=== PATIENT | female | born 1985 | race Caucasian/White ===

== ENCOUNTER 2018-05-26 08:58 | Inpatient (IN) | payer BC ==
[2018-05-26] MEDS ORDERED: Nalbuphine 20 MG/ML 1 ML Syringe IVPUSH PRN (11:31)
[2018-05-26] MEDS ORDERED: Sodium Chloride 0.9% 10 ML Syringe FLUSH PRN (11:31)
[2018-05-26] MEDS ORDERED: fentaNYL 100 MCG/2 ML SDV EPIDUR PRN (11:37)
[2018-05-26] MEDS ORDERED: Ondansetron 4 MG/2 ML SDV IVPUSH PRN (11:37)
[2018-05-26] MEDS ORDERED: ePHEDrine 50 MG/ML SDV IVPUSH PRN (11:37)
--- NOTE | 2018-05-26 11:39 | PCM.PREANE ---
Preanesthetic Assessment - Anesthesia/Transfusion/Family Hx Family History of Anesthesia Reaction: No Intubation History: Unknown - Physical Assessment NPO Status Date: 05/26/18 Pulse: 85 O2 Sat by Pulse Oximetry: 99 Respiratory Rate: 18 Blood Pressure: 137/70 Temperature: 37 C Vital Signs: Last Vital Signs Temp 37.0 C 05/26/18 11:22 Pulse 85 05/26/18 11:22 Resp 18 05/26/18 11:22 BP 137/70 05/26/18 11:22 Pulse Ox Height: 1.63 m Weight: 100.607 kg ASA Class: 2 Mental Status: Alert & Oriented x3 Airway Class: Mallampati = 2 Dentition: Reports: Normal Dentition, Caries Thyro-Mental Finger Breadths: 3 Mouth Opening Finger Breadths: 3 ROM/Head Extension: Full Lungs: Clear to Auscultation, Normal Respiratory Effort Cardiovascular: Regular Rate, Regular Rhythm, No Murmurs - Allergies Allergies/Adverse Reactions: Allergies Allergy/AdvReac Type Severity Reaction Status Date / Time No Known Allergies Allergy Verified 05/26/18 11:31 - Anesthesia Plan Pre-Op Medication Ordered: None - Acknowledgements Anesthesia Type Planned: Epidural Pt an Appropriate Candidate for the Planned Anesthesia: Yes Alternatives and Risks of Anesthesia Discussed w Pt/Guardian: Yes Pt/Guardian Understands and Agrees with Anesthesia Plan: Yes PreAnesthesia Questionnaire - CURRENT (IN HOUSE) MEDS Current Meds: Current Medications Lactated Ringer's (Ringers, Lactated) 1,000 mls @ 100 mls/hr IV ASDIRECTED SOTO Oxytocin/Lactated Ringer's (Pitocin In Lr 10 Units/1,000 Ml) 10 unit in 1,000 mls @ 500 mls/hr IV .CONTINUOUS SOTO Nalbuphine HCl (Nubain) 10 mg IVPUSH Q2H PRN PRN Reason: pain Sodium Chloride (Saline Flush) 10 ml FLUSH ASDIRECTED PRN PRN Reason: Keep Vein Open
[2018-05-26] MEDS ORDERED: Oxytocin/Lactated Ringers 10 UNIT/1,000 ML BAG IV SCH ×2 (11:45→14:45)
[2018-05-26] MEDS ORDERED: Phenylephrine 1 MG in Sodium Chloride 0.9% 10 ML IV SCH (11:45)
[2018-05-26] MEDS ORDERED: fentaNYL/Bupivacaine-NS 2 MCG/ML-0.125%/PF 100 ML Bag EPIDUR SCH (11:45)
[2018-05-26] MEDS ORDERED: Lactated Ringers 1,000 ML IV SCH (11:45)
[2018-05-26] MEDS ORDERED: Lidocaine 1% 50 ML MDV ONE (21:07)
--- NOTE | 2018-05-26 21:30 | PCM.LDHP ---
L&D History of Present Illness - General Date of Service: 05/26/18 Admit Problem/Dx: Patient Status Order with Admit Dx/Problem 05/26/18 11:31 Patient Status [ADT] Routine Admission Diagnosis/Problem Admission Diagnosis/Problem - History of Present Illness Improves with: Reports: None Worsens with: Reports: None Associated Symptoms: Reports: N - Related Data Allergies/Adverse Reactions: Allergies Allergy/AdvReac Type Severity Reaction Status Date / Time No Known Allergies Allergy Verified 05/26/18 11:31 Home Medications: Home Meds Vits #93/Iron Fum/FA [ Formula Tablet] 05/26/18 [History] Past Medical History 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: Reports: , Other (See Below) Other OB/BYN History: abnormal pap with HPV Neurological History: Reports: Migraines Psychiatric History: Reports: Anxiety, Bipolar, Depression - Past Surgical History HEENT Surgical History: Reports: Oral Surgery Social & Family History - Tobacco Use Smoking Status *Q: Former Smoker Used Tobacco, but Quit: Yes Month/Year Tobacco Last Used: 02/10/2018 - Recreational Drug Use Recreational Drug Use: Yes Drug Use in Last 12 Months: No Recreational Drug Type: Reports: Cocaine, Marijuana/Hashish, Other (see below) Other Recreational Drug Type: states she used meth H&P Review of Systems - Review of Systems: Review Of Systems: See Below General: Reports: No Symptoms HEENT: Reports: No Symptoms Pulmonary: Reports: No Symptoms Cardiovascular: Reports: No Symptoms Gastrointestinal: Reports: No Symptoms Genitourinary: Reports: No Symptoms Musculoskeletal: Reports: No Symptoms Skin: Reports: No Symptoms Psychiatric: Reports: No Symptoms Neurological: Reports: No Symptoms Hematologic/Lymphatic: Reports: No Symptoms Immunologic: Reports: No Symptoms L&D Exam - Exam Exam: See Below - Vital Signs Vital Signs: Last Vital Signs Temp 37 C 05/26/18 11:39 Pulse 85 05/26/18 11:39 Resp 18 05/26/18 11:39 BP 137/70 05/26/18 11:39 Pulse Ox 99 05/26/18 11:39 Weight: 100.607 kg - OB Specific Contraction Intensity: Moderate Movement: Active Heart Tones: Present Heart Rate (FHR) Variability: Moderate (6-25 bmp) Presentation: Vertex - Salguero Score Salguero Score Cervix Position: Midposition Salguero Score Consistency: Medium Salguero Score Effacement: >80% Salguero Score Dilation: 3-4 cm Salguero Score Infant's Station: -1 ,0 Salguero Score Total: 9 - Exam General: Alert, Oriented HEENT: PERRLA, Conjunctiva Clear, EACs Clear, EOMI, Hearing Intact, Mucosa Moist & [place], Nares Patent, Normal Nasal Septum, Posterior Pharynx Clear, TMs Clear Neck: Supple, Trachea Midline Lungs: Clear to Auscultation, Normal Respiratory Effort Cardiovascular: Regular Rate, Regular Rhythm GI/Abdominal Exam: Normal Bowel Sounds, Soft, Non-Tender, No Organomegaly, No Distention, No Abnormal Bruit, No Mass, Pelvis Stable Genitourinary: Normal external exam, Normal bimanual exam, Normal speculum exam Back Exam: Normal Inspection, Full Range of Motion Extremities: Normal Inspection, Normal Range of Motion, Non-Tender, No Pedal Edema, Normal Capillary Refill Skin: Warm, Dry, Intact Neurological: Cranial Nerves Intact, Reflexes Equal Bilateral Psychiatric: Alert, Normal Affect, Normal Mood - Patient Data Lab Results Last 24 hrs: Laboratory Results - last 24 hr 05/26/18 05/26/18 Range/Units 11:52 13:23 WBC 8.98 (3.98-10.04) K/mm3 RBC 3.83 L (3.98-5.22) M/mm3 Hgb 11.3 (11.2-15.7) gm/L Hct 34.2 (34.1-44.9) % MCV 89.3 (79.4-94.8) fl MCH 29.5 (25.6-32.2) pg MCHC 33.0 (32.2-35.5) g/dl RDW Std Deviation 45.1 (36.4-46.3) fL Plt Count 153 L (182-369) K/mm3 MPV 11.1 (9.4-12.3) fl Neut % (Auto) 76.0 H (34.0-71.1) % Lymph % (Auto) 13.9 L (19.3-51.7) % Harlan % (Auto) 8.4 (4.7-12.5) % Eos % (Auto) 0.6 L (0.7-5.8) Baso % (Auto) 0.1 (0.1-1.2) % Neut # (Auto) 6.83 H (1.56-6.13) K/mm3 Lymph # (Auto) 1.25 (1.18-3.74) K/mm3 Harlan # (Auto) 0.75 H (0.24-0.36) K/mm3 Eos # (Auto) 0.05 (0.04-0.36) K/mm3 Baso # (Auto) 0.01 (0.01-0.08) K/mm3 Urine Opiates Screen Negative (WJSJQJ=275) Ur Buprenorphine Scrn Negative (CUTOFF=10) Ur Oxycodone Screen Negative (TSP5WS=787) Urine Methadone Screen Negative (KPAVKU=239) Ur Propoxyphene Screen Negative (VVXQOR=984) Ur Barbiturates Screen Negative (JECEGQ=870) Ur Tricyclics Screen Negative (PDWZOE=809) Ur Phencyclidine Scrn Negative (CUTOFF=25) Ur Amphetamine Screen Negative (KITEQT=679) U Methamphetamines Scrn Negative (SSNKQV=699) U Benzodiazepines Scrn Negative (EVEYKE=753) U Cocaine Metab Screen Negative (RJQNJG=708) U Marijuana (THC) Screen Negative (CUTOFF=50) Result Diagrams: 05/26/18 11:52 Problem List Initiated/Reviewed/Updated: Yes Orders Last 24hrs: Active Orders 24 hr Category Date Time Status Patient Status [ADT] Routine ADT 05/26/18 11:31 Active Activity as Tolerated [RC] PFP Care 05/26/18 11:31 Active Communication Order [RC] ASDIRECTED Care 05/26/18 11:31 Active Heart Tones [RC] ASDIRECTED Care 05/26/18 11:32 Active Non Stress Test [RC] PER UNIT ROUTINE Care 05/26/18 11:31 Active Notify Provider [RC] ASDIRECTED Care 05/26/18 11:37 Active Notify Provider [RC] PFP Care 05/26/18 11:31 Active Notify Provider [RC] PRN Care 05/26/18 11:31 Active Oxygen Therapy [RC] ASDIRECTED Care 05/26/18 11:37 Active Peripheral IV Care [RC] . DIRECTED Care 05/26/18 11:32 Active Pulse Oximetry [RC] ASDIRECTED Care 05/26/18 11:37 Active Vital Signs [RC] PER UNIT ROUTINE Care 05/26/18 11:31 Active Regular Diet [DIET] Diet 05/26/18 Lunch Active RAPID PLASMA REAGIN,RPR [CHEM] Routine Lab 05/26/18 11:52 Received Lactated Ringers [Ringers, Lactated] 1,000 ml Med 05/26/18 11:45 Active IV ASDIRECTED Nalbuphine [Nubain] Med 05/26/18 11:31 Active 10 mg IVPUSH Q2H PRN Ondansetron [Zofran] Med 05/26/18 11:37 Active 4 mg IVPUSH ONETIME PRN Oxytocin/Lactated Ringers [Pitocin in LR 10 Units/1,000 Med 05/26/18 11:45 Active ML] 10 unit in 1,000 ml IV .CONTINUOUS Oxytocin/Lactated Ringers [Pitocin in LR 10 Units/1,000 Med 05/26/18 14:45 Active ML] 10 unit in 1,000 ml IV TITRATE Phenylephrine [[place]ito-Synephrine] 1 mg Med 05/26/18 11:45 Active Sodium Chloride 0.9% [Normal Saline] 10 ml IV TITRATE Sodium Chloride 0.9% [Saline Flush] Med 05/26/18 11:31 Active 10 ml FLUSH ASDIRECTED PRN ePHEDrine [ePHEDrine sulfate] Med 05/26/18 11:37 Active 5 mg IVPUSH ASDIRECTED PRN fentaNYL [Sublimaze] Med 05/26/18 11:37 Active 100 mcg EPIDUR Q3H PRN fentaNYL/Bupivacaine/NS/PF [mvhgqBUX-[place]-RO 2 MCG/ML- Med 05/26/18 11:45 Active 0.125%] 100 ml EPIDUR ASDIRECTED Electronic Heart Tones Ext w TOCO [WOMSER] Oth 05/26/18 11:31 Ordered Routine Electronic Heart Tones Internal [WOMSER] Per Unit Oth 05/26/18 11:31 Ordered Routine Peripheral IV Insertion Adult [OM.PC] Routine Oth 05/26/18 11:31 Ordered Resuscitation Status Routine Resus Stat 05/26/18 11:31 Ordered Medication Orders Ephedrine Sulfate (Ephedrine Sulfate) 5 mg IVPUSH ASDIRECTED PRN PRN Reason: Hypotension Fentanyl (Sublimaze) 100 mcg EPIDUR Q3H PRN PRN Reason: Pain Fentanyl/Bupivacaine HCl (Vvnkaskg-Jjqdl-Hw 2 Mcg/Ml-0.125%) 100 ml EPIDUR ASDIRECTED SOTO Lactated Ringer's (Ringers, Lactated) 1,000 mls @ 100 mls/hr IV ASDIRECTED SOTO Last Admin: 05/26/18 14:47 Dose: 100 mls/hr Oxytocin/Lactated Ringer's (Pitocin In Lr 10 Units/1,000 Ml) 10 unit in 1,000 mls @ 500 mls/hr IV .CONTINUOUS SOTO Phenylephrine HCl 1 mg/ Sodium (Chloride) 10.1 mls @ 1 mls/sec IV TITRATE SOTO; Protocol Oxytocin/Lactated Ringer's (Pitocin In Lr 10 Units/1,000 Ml) 10 unit in 1,000 mls @ 12 mls/hr IV TITRATE SOTO; Protocol Last Titration: 05/26/18 19:05 Dose: 10 munits/min, 60 mls/hr Titration: 05/26/18 18:55 Dose: 12 munits/min, 72 mls/hr Titration: 05/26/18 17:28 Dose: 10 munits/min, 60 mls/hr Titration: 05/26/18 16:35 Dose: 8 munits/min, 48 mls/hr Titration: 05/26/18 16:03 Dose: 6 munits/min, 36 mls/hr Titration: 05/26/18 15:28 Dose: 4 munits/min, 24 mls/hr Admin: 05/26/18 14:47 Dose: 2 munits/min, 12 mls/hr Nalbuphine HCl (Nubain) 10 mg IVPUSH Q2H PRN PRN Reason: pain Last Admin: 05/26/18 19:26 Dose: 10 mg Ondansetron HCl (Zofran) 4 mg IVPUSH ONETIME PRN PRN Reason: Nausea/Vomiting Sodium Chloride (Saline Flush) 10 ml FLUSH ASDIRECTED PRN PRN Reason: Keep Vein Open Assessment/Plan Comment:: Term induction AROM clear fluid Anticipate unless otherwise indicated
--- NOTE | 2018-05-26 21:38 | PCM.SN ---
- Free Text/Narrative Note: Stage I - Patient presented for induction of labor. AROM. Progressed to complete with overall reassuring heart tones. Stage II - of viable female infant, weight 7#3oz, APGARS 8/9 at 2110. Head delivered in controlled manner over intact perineum. Body and shoulders followed atraumatically. Baby to maternal abdomen. Cord clamped and cut. Stage III- Spontaneous delivery with some manual expression via uterine massage of intact placenta. 3vc. No laceration. EBL 100.
[2018-05-26] MEDS ORDERED: Lanolin 100% Cream 7 GM Tube TOP PRN (21:45)
[2018-05-26] MEDS ORDERED: Acetaminophen 325 MG Tab PO PRN (21:45)
[2018-05-26] MEDS ORDERED: Witch Hazel Medicated Pads 40/Jar TOP PRN (21:45)
[2018-05-26] MEDS ORDERED: Benzocaine/Menthol 20%-0.5% Spray 56 GM Canister TOP PRN (21:45)
[2018-05-26] MEDS: Docusate Sodium 100 MG Cap PO PRN (22:17)
[2018-05-26] MEDS: Ibuprofen 600 MG Tab PO PRN (22:18)
--- NOTE | 2018-05-27 07:39 | PCM.PNPP ---
- General Info Date of Service: 05/27/18 Functional Status: Reports: Pain Controlled - Review of Systems General: Reports: No Symptoms HEENT: Reports: No Symptoms Pulmonary: Reports: No Symptoms Cardiovascular: Reports: No Symptoms Gastrointestinal: Reports: No Symptoms Genitourinary: Reports: No Symptoms Musculoskeletal: Reports: No Symptoms Skin: Reports: No Symptoms Neurological: Reports: No Symptoms Psychiatric: Reports: No Symptoms - General Info Date of Service: 05/27/18 - Patient Data Vital Signs - Most Recent: Last Vital Signs Temp 37.2 C 05/27/18 02:29 Pulse 81 05/27/18 02:29 Resp 16 05/27/18 02:29 BP 119/52 L 05/27/18 02:29 Pulse Ox 97 05/27/18 02:29 Weight - Most Recent: 100.607 kg I&O - Last 24 Hours: Intake & Output 05/26/18 05/27/18 05/27/18 22:59 06:59 14:59 Intake Total 1850 Balance 1850 Lab Results - Last 24 Hours: Laboratory Results - last 24 hr 05/26/18 05/26/18 Range/Units 11:52 13:23 WBC 8.98 (3.98-10.04) K/mm3 RBC 3.83 L (3.98-5.22) M/mm3 Hgb 11.3 (11.2-15.7) gm/L Hct 34.2 (34.1-44.9) % MCV 89.3 (79.4-94.8) fl MCH 29.5 (25.6-32.2) pg MCHC 33.0 (32.2-35.5) g/dl RDW Std Deviation 45.1 (36.4-46.3) fL Plt Count 153 L (182-369) K/mm3 MPV 11.1 (9.4-12.3) fl Neut % (Auto) 76.0 H (34.0-71.1) % Lymph % (Auto) 13.9 L (19.3-51.7) % Coffee % (Auto) 8.4 (4.7-12.5) % Eos % (Auto) 0.6 L (0.7-5.8) Baso % (Auto) 0.1 (0.1-1.2) % Neut # (Auto) 6.83 H (1.56-6.13) K/mm3 Lymph # (Auto) 1.25 (1.18-3.74) K/mm3 Coffee # (Auto) 0.75 H (0.24-0.36) K/mm3 Eos # (Auto) 0.05 (0.04-0.36) K/mm3 Baso # (Auto) 0.01 (0.01-0.08) K/mm3 Urine Opiates Screen Negative (XVXKWY=522) Ur Buprenorphine Scrn Negative (CUTOFF=10) Ur Oxycodone Screen Negative (XVK1KL=857) Urine Methadone Screen Negative (ZEYXYH=122) Ur Propoxyphene Screen Negative (KGHFLZ=980) Ur Barbiturates Screen Negative (URTYCL=992) Ur Tricyclics Screen Negative (LKQEQG=010) Ur Phencyclidine Scrn Negative (CUTOFF=25) Ur Amphetamine Screen Negative (YESRAH=486) U Methamphetamines Scrn Negative (KEOVJU=511) U Benzodiazepines Scrn Negative (RDXDDY=102) U Cocaine Metab Screen Negative (MCGXKC=076) U Marijuana (THC) Screen Negative (CUTOFF=50) Med Orders - Current: Current Medications Acetaminophen (Tylenol) 650 mg PO Q4H PRN PRN Reason: mild pain or fever Benzocaine/Menthol (Dermoplast Pain Relief Almond) 0 gm TOP ASDIRECTED PRN PRN Reason: Perineal Comfort Measure Last Admin: 05/26/18 22:16 Dose: 1 canister Docusate Sodium (Colace) 100 mg PO BID PRN PRN Reason: Constipation Last Admin: 05/26/18 22:17 Dose: 100 mg Emollient Ointment (Lansinoh Hpa) 0 gm TOP ASDIRECTED PRN PRN Reason: Sore Nipples Ibuprofen (Motrin) 600 mg PO Q6H PRN PRN Reason: Mild pain or fever Last Admin: 05/26/18 22:18 Dose: 600 mg Witch Ale (Tucks) 1 pad TOP ASDIRECTED PRN PRN Reason: Pain Last Admin: 05/26/18 22:17 Dose: 1 tub Discontinued Medications Ephedrine Sulfate (Ephedrine Sulfate) 5 mg IVPUSH ASDIRECTED PRN PRN Reason: Hypotension Fentanyl (Sublimaze) 100 mcg EPIDUR Q3H PRN PRN Reason: Pain Fentanyl/Bupivacaine HCl (Vpnlxlrw-Ntnfg-Gn 2 Mcg/Ml-0.125%) 100 ml EPIDUR ASDIRECTED SOTO Lactated Ringer's (Ringers, Lactated) 1,000 mls @ 100 mls/hr IV ASDIRECTED SOTO Last Admin: 05/26/18 14:47 Dose: 100 mls/hr Oxytocin/Lactated Ringer's (Pitocin In Lr 10 Units/1,000 Ml) 10 unit in 1,000 mls @ 500 mls/hr IV .CONTINUOUS SOTO Phenylephrine HCl 1 mg/ Sodium (Chloride) 10.1 mls @ 1 mls/sec IV TITRATE SOTO; Protocol Oxytocin/Lactated Ringer's (Pitocin In Lr 10 Units/1,000 Ml) 10 unit in 1,000 mls @ 12 mls/hr IV TITRATE SOTO; Protocol Last Titration: 05/26/18 21:12 Dose: 500 mls/hr Lidocaine HCl (Xylocaine 1%) Confirm Administered Dose 50 ml .ROUTE .[facility] Stop: 05/26/18 21:08 Last Admin: 05/27/18 03:31 Dose: Not Given Nalbuphine HCl (Nubain) 10 mg IVPUSH Q2H PRN PRN Reason: pain Last Admin: 05/26/18 19:26 Dose: 10 mg Ondansetron HCl (Zofran) 4 mg IVPUSH ONETIME PRN PRN Reason: Nausea/Vomiting Sodium Chloride (Saline Flush) 10 ml FLUSH ASDIRECTED PRN PRN Reason: Keep Vein Open - Interaction Infant Disposition, : at Bedside Support Person: Significant Other - Recovery Exam Fundal Tone: Firm Fundal Level: 1 Fingerbreadths Below Umbilicus Fundal Placement: Midline Lochia Amount: Scant Lochia Color: Rubra/Red Perineum Description: Intact, Minimal Bruising/Swelling Episiotomy/Laceration: None Bladder Status: Voiding Urinary Elimination: Voided - Exam General: Alert, Oriented HEENT: Pupils Equal Neck: Supple Lungs: Clear to Auscultation, Normal Respiratory Effort Cardiovascular: Regular Rate, Regular Rhythm GI/Abdominal Exam: Normal Bowel Sounds, Soft, Non-Tender, No Organomegaly, No Distention, No Abnormal Bruit, No Mass, Pelvis Stable Extremities: Normal Inspection, Normal Range of Motion, Non-Tender, No Pedal Edema, Normal Capillary Refill Neurological: No New Focal Deficit Psy/Mental Status: Alert, Normal Affect, Normal Mood - Problem List Review Problem List Initiated/Reviewed/Updated: Yes - My Orders Last 24 Hours: My Active Orders 05/26/18 11:31 Vital Signs [RC] PER UNIT ROUTINE Resuscitation Status Routine 05/26/18 11:32 Heart Tones [RC] ASDIRECTED 05/26/18 11:52 RAPID PLASMA REAGIN,RPR [CHEM] Routine 05/26/18 21:45 Vital Signs [RC] 21,03,09,15 Acetaminophen [Tylenol] 650 mg PO Q4H PRN Benzocaine/Menthol [Dermoplast Pain Relief Almond] See Dose Instructions TOP ASDIRECTED PRN Docusate Sodium [Colace] 100 mg PO BID PRN Ibuprofen [Motrin] 600 mg PO Q6H PRN Lanolin [Lansinoh HPA] See Dose Instructions TOP ASDIRECTED PRN Witch Ale [Tucks] 1 pad TOP ASDIRECTED PRN Assess Lochia [WOMSER] Per Unit Routine Assess Uterine Involution [WOMSER] Per Unit Routine Breast Pump [WOMSER] Per Unit Routine Heat Therapy [OM.PC] PRN Medication Administration Instruction [OM.PC] Routine Perineal Care [OM.PC] Per Unit Routine Sitz Bath [OM.PC] Per Unit Routine 05/27/18 21:45 Heat Therapy [OM.PC] PRN - Plan Plan:: PPD1 Doing well
[2018-05-27] MEDS: Ibuprofen 600 MG Tab PO PRN ×2 (08:48→15:04)
[2018-05-27] MEDS: Docusate Sodium 100 MG Cap PO PRN (13:47)
[2018-05-27] MEDS ORDERED: Measles, Mumps & Rubella Vaccine 0.5 ML SDV SUBCUT ONE (15:51)
[2018-05-28] MEDS: Ibuprofen 600 MG Tab PO PRN (08:04)
[2018-05-28] MEDS: Docusate Sodium 100 MG Cap PO PRN (08:04)
== END 2018-05-28 11:15 | disposition home or self-care (01) | DRG 541 ==
LOC: JD.OB 11:10 → OBSVTOIN 21:11
PROVIDERS: ADMIT Obstetrics & Gynecology; ATTEND Obstetrics & Gynecology
PROC: 10907ZC Drainage of Amniotic Fluid, Therapeutic from Products of Conception, Via Natural or Artificial Opening (ICD-10-PCS; principal; 2018-05-26)
PROC: 3E033VJ Introduction of Other Hormone into Peripheral Vein, Percutaneous Approach (ICD-10-PCS; principal; 2018-05-26)
PROC: 10E0XZZ Delivery of Products of Conception, External Approach (ICD-10-PCS; principal; 2018-05-26)
PROC: 10D17Z9 Manual Extraction of Products of Conception, Retained, Via Natural or Artificial Opening (ICD-10-PCS; principal; 2018-05-26)
PROC: 3E0234Z Introduction of Serum, Toxoid and Vaccine into Muscle, Percutaneous Approach (ICD-10-PCS; 2018-05-27)
DX: O99.344 Other mental disorders complicating childbirth (principal); F41.9 Anxiety disorder, unspecified; O98.32 Other infections with a predominantly sexual mode of transmission complicating childbirth; A63.0 Anogenital (venereal) warts; Z37.0 Single live birth; F31.9 Bipolar disorder, unspecified; Z87.891 Personal history of nicotine dependence; O73.1 Retained portions of placenta and membranes, without hemorrhage; Z23 Encounter for immunization; Z3A.39 39 weeks gestation of pregnancy
CPT/HCPCS: 36415; 59025; 59409; 80306; 85025; 86592; 90471; 90707; A9270-GY; J2300; J2590; J7120

== ENCOUNTER 2019-07-13 17:25 | Inpatient (IN) | payer MEDICAID ==
[2019-07-13] MEDS ORDERED: Sodium Chloride 0.9% 10 ML Syringe FLUSH PRN (18:34)
[2019-07-13] MEDS ORDERED: Oxytocin/Lactated Ringers 10 UNIT/1,000 ML BAG IV SCH (18:45)
[2019-07-13] MEDS: Lactated Ringers 1,000 ML IV SCH ×2 (18:48→22:20)
--- NOTE | 2019-07-13 19:10 | PCM.PNLD ---
Labor Progress Note - VS & Meds Vital Signs: Last Vital Signs Temp 36.3 C 07/13/19 17:41 Pulse 95 07/13/19 17:41 Resp 18 07/13/19 17:41 BP 167/80 H 07/13/19 17:41 Pulse Ox 100 07/13/19 17:41 Active Medications: Current Medications Lactated Ringer's (Ringers, Lactated) 1,000 mls @ 40 mls/hr IV ASDIRECTED SOTO Last Admin: 07/13/19 18:48 Dose: 40 mls/hr Oxytocin/Lactated Ringer's (Pitocin In Lr 10 Units/1,000 Ml) 10 unit in 1,000 mls @ 12 mls/hr IV TITRATE SOTO; Protocol Sodium Chloride (Saline Flush) 10 ml FLUSH ASDIRECTED PRN PRN Reason: Keep Vein Open - Uterine Contractions Contraction Intensity: Mild Uterine Resting Tone: Soft - Monitoring Decelerations: None Strip Review: Category I - Vaginal Exam Dilation (cm): 5 Effacement (Percent): 80 Station: -2 - Labor Progress (Free Text) Labor Progress: 34 year old with decreased movement here for augmentation. AROM clear fluid
[2019-07-13] MEDS ORDERED: Nalbuphine 10 MG/ML Syringe IVPUSH PRN (20:27)
[2019-07-13] MEDS ORDERED: fentaNYL 100 MCG/2 ML SDV EPIDUR PRN (20:35)
[2019-07-13] MEDS ORDERED: ePHEDrine 50 MG/ML SDV IVPUSH PRN (20:35)
[2019-07-13] MEDS ORDERED: Bupivacaine/fentaNYL/NS 100 ML Bag EPIDUR PRN (20:35)
[2019-07-13] MEDS ORDERED: diphenhydrAMINE 50 MG/ML SDV IVPUSH PRN (20:35)
--- NOTE | 2019-07-13 23:27 | PCM.SN.2 ---
- Free Text/Narrative Note: Stage I - Patient presented for augmentation of labor secondary to decreased movement and non-reactive NST. AROM and pitocin. Progressed nicely to complete with reassuring FHT. Stage II- of viable male, weight 3500, 8/9 APGARS at 1110. Head delivered in controlled manner over intact perineum. Body and shoulders atraumatically. Tight cord around left ankle. To maternal abdomen. Positive cry. Cord clamped and cut. Stage III - of intact placenta. 3vc. No laceration. EBL 250
[2019-07-14] MEDS ORDERED: Acetaminophen 325 MG Tab PO PRN (00:19)
[2019-07-14] MEDS ORDERED: Benzocaine/Menthol 20%-0.5% Spray 56 GM Canister TOP PRN (00:19)
[2019-07-14] MEDS ORDERED: Witch Hazel Medicated Pads 40/Jar TOP PRN (00:19)
[2019-07-14] MEDS ORDERED: Docusate Sodium 100 MG Cap PO PRN (00:19)
[2019-07-14] MEDS: Ibuprofen 600 MG Tab PO PRN ×2 (01:14→14:17)
--- NOTE | 2019-07-14 07:31 | PCM.DCSUM1 ---
Discharge Summary - Hospital Course Brief History: Admitted for labor augmentation. Progressed rapidly to complete. Expressed desire for discharge on PPD1 Diagnosis: Stroke: No - Discharge Data Discharge Date: 07/14/19 Discharge Disposition: Home, Self-Care 01 Condition: Good - Referral to Home Health Primary Care Physician: Marianna Ferguson MD - Patient Instructions Diet: Usual Diet as Tolerated Activity: No Strenuous Activities Activity, Other: pelvic rest Driving: May Drive Today Showering/Bathing: May Shower Notify Provider of: Fever, Increased Pain, Swelling and Redness, Drainage - Discharge Plan *PRESCRIPTION DRUG MONITORING PROGRAM REVIEWED*: No *COPY OF PRESCRIPTION DRUG MONITORING REPORT IN PATIENT GIOVANNI: No Home Medications: Home Meds hydrOXYzine HCL [Atarax] 25 mg PO Q6H PRN #20 tab 10/17/18 [Rx] Referrals: Marianna Ferguson MD [Primary Care Provider] - (2 weeks (Marty)) - Discharge Summary/Plan Comment DC Time >30 min.: No - General Info Date of Service: 07/14/19 Functional Status: Reports: Pain Controlled - Review of Systems General: Reports: No Symptoms HEENT: Reports: No Symptoms Pulmonary: Reports: No Symptoms Cardiovascular: Reports: No Symptoms Gastrointestinal: Reports: No Symptoms Genitourinary: Reports: No Symptoms Musculoskeletal: Reports: No Symptoms Skin: Reports: No Symptoms Neurological: Reports: No Symptoms Psychiatric: Reports: No Symptoms - Patient Data Vitals - Most Recent: Last Vital Signs Temp 37.0 C 07/14/19 03:21 Pulse 72 07/14/19 03:21 Resp 15 07/14/19 03:21 BP 130/62 07/14/19 03:21 Pulse Ox 96 07/14/19 03:21 Weight - Most Recent: 112.491 kg I&O - Last 24 hours: Intake & Output 07/13/19 07/14/19 07/14/19 22:59 06:59 14:59 Intake Total 180 2500 Balance 180 2500 Lab Results - Last 24 hrs: Laboratory Results - last 24 hr 07/13/19 07/13/19 07/13/19 Range/Units 17:35 17:35 19:35 WBC 7.13 (3.98-10.04) K/mm3 RBC 3.93 L (3.98-5.22) M/mm3 Hgb 11.1 L (11.2-15.7) gm/dl Hct 34.3 (34.1-44.9) % MCV 87.3 (79.4-94.8) fl MCH 28.2 (25.6-32.2) pg MCHC 32.4 (32.2-35.5) g/dl RDW Std Deviation 43.3 (36.4-46.3) fL Plt Count 141 L (182-369) K/mm3 MPV 11.7 (9.4-12.3) fl Neut % (Auto) 73.6 H (34.0-71.1) % Lymph % (Auto) 15.1 L (19.3-51.7) % [place] % (Auto) 10.2 (4.7-12.5) % Eos % (Auto) 0.6 L (0.7-5.8) Baso % (Auto) 0.1 (0.1-1.2) % Neut # (Auto) 5.24 (1.56-6.13) K/mm3 Lymph # (Auto) 1.08 L (1.18-3.74) K/mm3 [place] # (Auto) 0.73 H (0.24-0.36) K/mm3 Eos # (Auto) 0.04 (0.04-0.36) K/mm3 Baso # (Auto) 0.01 (0.01-0.08) K/mm3 Sodium (136-145) mEq/L Potassium (3.5-5.1) mEq/L Chloride (98-107) mEq/L Carbon Dioxide (21-32) mEq/L Anion Gap (5-15) BUN (7-18) mg/dL Creatinine (0.55-1.02) mg/dL Est Cr Clr Drug Dosing mL/min Estimated GFR (MDRD) (>60) mL/min BUN/Creatinine Ratio (14-18) Glucose (74-106) mg/dL Calcium (8.5-10.1) mg/dL Total Bilirubin (0.2-1.0) mg/dL AST (15-37) U/L ALT (14-59) U/L Alkaline Phosphatase (46-116) U/L Total Protein (6.4-8.2) g/dl Albumin (3.4-5.0) g/dl Globulin gm/dL Albumin/Globulin Ratio (1-2) Urine Color Yellow (Yellow) Urine Appearance Clear (Clear) Urine pH 6.0 (5.0-8.0) Ur Specific [place] > or = 1.030 (1.005-1.030) Urine Protein Negative (Negative) Urine Glucose (UA) Negative (Negative) Urine Ketones Negative (Negative) Urine Occult Blood Negative (Negative) Urine Nitrite Negative (Negative) Urine Bilirubin Negative (Negative) Urine Urobilinogen 0.2 (0.2-1.0) Ur Leukocyte Esterase Negative (Negative) Urine Opiates Screen Negative (NMVWGV=764) Ur Buprenorphine Scrn Negative (CUTOFF=10) Ur Oxycodone Screen Negative (BRV8XV=414) Urine Methadone Screen Negative (IOPOWV=903) Ur Propoxyphene Screen Negative (ZWTZKE=778) Ur Barbiturates Screen Negative (UZCFVU=555) Ur Tricyclics Screen Negative (BPHXIC=023) Ur Phencyclidine Scrn Negative (CUTOFF=25) Ur Amphetamine Screen Negative (EVYZDJ=348) U Methamphetamines Scrn Negative (IYFKAO=056) U Benzodiazepines Scrn Negative (IAYIFI=677) U Cocaine Metab Screen Negative (XSTGHE=792) U Marijuana (THC) Screen Negative (CUTOFF=50) RPR (NONREACTIVE) 07/13/19 07/13/19 Range/Units 19:35 19:35 WBC (3.98-10.04) K/mm3 RBC (3.98-5.22) M/mm3 Hgb (11.2-15.7) gm/dl Hct (34.1-44.9) % MCV (79.4-94.8) fl MCH (25.6-32.2) pg MCHC (32.2-35.5) g/dl RDW Std Deviation (36.4-46.3) fL Plt Count (182-369) K/mm3 MPV (9.4-12.3) fl Neut % (Auto) (34.0-71.1) % Lymph % (Auto) (19.3-51.7) % [place] % (Auto) (4.7-12.5) % Eos % (Auto) (0.7-5.8) Baso % (Auto) (0.1-1.2) % Neut # (Auto) (1.56-6.13) K/mm3 Lymph # (Auto) (1.18-3.74) K/mm3 [place] # (Auto) (0.24-0.36) K/mm3 Eos # (Auto) (0.04-0.36) K/mm3 Baso # (Auto) (0.01-0.08) K/mm3 Sodium 140 (136-145) mEq/L Potassium 3.7 (3.5-5.1) mEq/L Chloride 104 (98-107) mEq/L Carbon Dioxide 23 (21-32) mEq/L Anion Gap 16.7 H (5-15) BUN 8 (7-18) mg/dL Creatinine 0.6 (0.55-1.02) mg/dL Est Cr Clr Drug Dosing 116.24 mL/min Estimated GFR (MDRD) > 60 (>60) mL/min BUN/Creatinine Ratio 13.3 L (14-18) Glucose 100 (74-106) mg/dL Calcium 8.4 L (8.5-10.1) mg/dL Total Bilirubin 0.2 (0.2-1.0) mg/dL AST 30 (15-37) U/L ALT 18 (14-59) U/L Alkaline Phosphatase 138 H (46-116) U/L Total Protein 6.6 (6.4-8.2) g/dl Albumin 2.6 L (3.4-5.0) g/dl Globulin 4.0 gm/dL Albumin/Globulin Ratio 0.7 L (1-2) Urine Color (Yellow) Urine Appearance (Clear) Urine pH (5.0-8.0) Ur Specific [place] (1.005-1.030) Urine Protein (Negative) Urine Glucose (UA) (Negative) Urine Ketones (Negative) Urine Occult Blood (Negative) Urine Nitrite (Negative) Urine Bilirubin (Negative) Urine Urobilinogen (0.2-1.0) Ur Leukocyte Esterase (Negative) Urine Opiates Screen (RJZCNR=656) Ur Buprenorphine Scrn (CUTOFF=10) Ur Oxycodone Screen (TTC4PA=655) Urine Methadone Screen (HURRVI=541) Ur Propoxyphene Screen (NGMOYC=742) Ur Barbiturates Screen (FOVDYB=355) Ur Tricyclics Screen (LBLWKU=377) Ur Phencyclidine Scrn (CUTOFF=25) Ur Amphetamine Screen (BCRVHE=491) U Methamphetamines Scrn (XNDIFH=256) U Benzodiazepines Scrn (YVMDEV=728) U Cocaine Metab Screen (QDBBVE=182) U Marijuana (THC) Screen (CUTOFF=50) RPR Non-reactive (NONREACTIVE) Med Orders - Current: Current Medications Acetaminophen (Tylenol) 650 mg PO Q4H PRN PRN Reason: mild pain or fever Benzocaine/Menthol (Dermoplast Pain Relief [place]) 0 gm TOP ASDIRECTED PRN PRN Reason: Perineal Comfort Measure Last Admin: 07/14/19 01:14 Dose: 1 applic Docusate Sodium (Colace) 100 mg PO BID PRN PRN Reason: Constipation Ibuprofen (Motrin) 600 mg PO Q6H PRN PRN Reason: Mild pain or fever Last Admin: 07/14/19 01:14 Dose: 600 mg Witch Ale (Tucks) 1 pad TOP ASDIRECTED PRN PRN Reason: Pain Last Admin: 07/14/19 01:14 Dose: 1 applic Discontinued Medications Diphenhydramine HCl (Benadryl) 25 mg IVPUSH Q6H PRN PRN Reason: pruritis Ephedrine Sulfate (Ephedrine Sulfate) 5 mg IVPUSH ASDIRECTED PRN PRN Reason: Hypotension Fentanyl (Sublimaze) 100 mcg EPIDUR Q3H PRN PRN Reason: Pain Fentanyl/Bupivacaine HCl (Fentanyl/Bupivacaine/Ns 2 Mcg-0.125% 100 Ml) 100 ml EPIDUR ASDIRECTED PRN PRN Reason: Pain Lactated Ringer's (Ringers, Lactated) 1,000 mls @ 40 mls/hr IV ASDIRECTED SOTO Last Admin: 07/13/19 22:20 Dose: 40 mls/hr Oxytocin/Lactated Ringer's (Pitocin In Lr 10 Units/1,000 Ml) 10 unit in 1,000 mls @ 12 mls/hr IV TITRATE SOTO; Protocol Last Titration: 07/13/19 22:15 Dose: 10 munits/min, 60 mls/hr Nalbuphine HCl (Nubain) 10 mg IVPUSH Q2H PRN PRN Reason: Pain Last Admin: 07/13/19 22:38 Dose: 5 mg Sodium Chloride (Saline Flush) 10 ml FLUSH ASDIRECTED PRN PRN Reason: Keep Vein Open - Exam General: Reports: Alert, Oriented HEENT: Reports: Pupils Equal, Pupils Reactive, EOMI, Mucous Membr. Moist/[place] Neck: Reports: Supple Lungs: Reports: Clear to Auscultation, Normal Respiratory Effort Cardiovascular: Reports: Regular Rate, Regular Rhythm GI/Abdominal Exam: Normal Bowel Sounds, Soft, Non-Tender, No Organomegaly, No Distention, No Abnormal Bruit, No Mass, Pelvis Stable Back Exam: Reports: Normal Inspection, Full Range of Motion Extremities: Normal Inspection, Normal Range of Motion, Non-Tender, No Pedal Edema, Normal Capillary Refill Skin: Reports: Warm, Dry, Intact Wound/Incisions: Reports: Healing Well Neurological: Reports: No New Focal Deficit Psy/Mental Status: Reports: Alert, Normal Affect, Normal Mood
== END 2019-07-14 14:45 | disposition home or self-care (01) | DRG 807 ==
LOC: UNDOADMOB 17:25 → JD.OB 17:25 → OBSVTOIN 23:10 → JD.OB 23:10
PROVIDERS: ADMIT Obstetrics & Gynecology; ATTEND Obstetrics & Gynecology
PROC: 10E0XZZ Delivery of Products of Conception, External Approach (ICD-10-PCS; principal; 2019-07-13)
DX: O69.1XX0 Labor and delivery complicated by cord around neck, with compression, not applicable or unspecified (principal); Z37.0 Single live birth; Z3A.38 38 weeks gestation of pregnancy; O76 Abnormality in fetal heart rate and rhythm complicating labor and delivery; O99.334 Smoking (tobacco) complicating childbirth; F17.210 Nicotine dependence, cigarettes, uncomplicated
CPT/HCPCS: 36415; 59025; 59409; 80053; 80306; 81003; 85025; 86592; A9270-GY; J2300; J2590; J7120

== ENCOUNTER 2020-10-06 12:46 | Emergency (ER) | payer BC, MEDICAID ==
[2020-10-06] MEDS ORDERED: Sodium Chloride 0.9% 10 ML Syringe FLUSH PRN (13:58)
[2020-10-06] MEDS ORDERED: Sodium Chloride 0.9% 1,000 ML IV SCH (14:00)
[2020-10-06] MEDS ORDERED: diphenhydrAMINE 50 MG/ML SDV IVPUSH ONE (14:01)
[2020-10-06] MEDS ORDERED: Metoclopramide 10 MG/2 ML SDV IVPUSH ONE (14:01)
[2020-10-06] MEDS ORDERED: Ketorolac 30 MG/ML SDV IVPUSH SCH (14:15)
--- NOTE | 2020-10-06 14:31 | CT ---
Head CT Technique: Multiple axial sections through the brain were obtained. Intravenous contrast was not utilized. Reconstructed coronal and sagittal images were obtained. Intravenous contrast was not utilized. Comparison: No prior intracranial imaging is available. Findings: Ventricles along with basal cisterns and sulci over the convexities are within normal limits for the patient's age. No abnormal parenchymal densities are seen. No evidence of intracranial hemorrhage is seen. No midline shift or mass-effect is seen. Bone window settings were reviewed which show no acute calvarial abnormality. Visualized mastoid and paranasal sinuses show nothing acute. Impression: 1. Nothing acute is appreciated on noncontrast head CT exam. Diagnostic code #1
--- NOTE | 2020-10-06 14:49 | EDM.PDOC ---
ED HPI GENERAL MEDICAL PROBLEM - General Chief Complaint: General Stated Complaint: MULTIPLE ISSUES SENT BY [facility] Time Seen by Provider: 10/06/20 13:31 Source of Information: Reports: Patient, RN Notes Reviewed - History of Present Illness INITIAL COMMENTS - FREE TEXT/NARRATIVE: 35 yr old female has had Kathleen for about 5 days, doesn't go away. Hx of migraines but they usually only last a day or 2. Also has been getting low heart rate alarms on her apple watch. Has been having upper mid abd pain. Headache Pain Score (Numeric/FACES): 5 Abdominal Pain Score (Numeric/FACES): 6 - Related Data Allergies Allergy/AdvReac Type Severity Reaction Status Date / Time No Known Allergies Allergy Verified 10/17/18 02:24 Home Meds: Home Meds FLUoxetine [PROzac] 20 mg PO DAILY 10/06/20 [History] LORazepam [Ativan] 0.5 mg PO ASDIRECTED 10/06/20 [History] Past Medical History - Past Health History Medical/Surgical History: Denies Medical/Surgical History Cardiovascular History: Reports: Other (See Below) Other Cardiovascular History: sinus bradycardia hr 30-40 bpm DENTAL SCHEDULING COORDINATOR History: Reports: , Other (See Below) Other DENTAL SCHEDULING COORDINATOR History: abnormal pap with HPV Neurological History: Reports: Migraines Psychiatric History: Reports: Anxiety, Bipolar, Depression - Infectious Disease History Infectious Disease History: Reports: Human Papilloma Virus (HPV) - Past Surgical History HEENT Surgical History: Reports: Oral Surgery Social & Family History - Family History Family Medical History: No Pertinent Family History Respiratory: Reports: None GI: Reports: None - Tobacco Use Tobacco Use Status *Q: Current Every Day Tobacco User Years of Tobacco use: 20 Packs/Tins Daily: 0.3 - Caffeine Use Caffeine Use: Reports: Coffee, Soda - Recreational Drug Use Recreational Drug Type: Reports: Marijuana/Hashish ED ROS GENERAL - Review of Systems Review Of Systems: See Below Constitutional: Denies: Fever, Chills, Diaphoresis HEENT: Reports: No Symptoms Respiratory: Denies: Shortness of Breath, Pleuritic Chest Pain, Cough Cardiovascular: Denies: Chest Pain GI/Abdominal: Reports: Abdominal Pain, Nausea. Denies: Diarrhea, Vomiting Musculoskeletal: Denies: Shoulder Pain, Arm Pain Skin: Reports: No Symptoms Neurological: Reports: Dizziness, Headache. Denies: Trouble Speaking, Difficulty Walking, Weakness ED EXAM, GENERAL - Physical Exam Exam: See Below General Appearance: Alert, No Apparent Distress Eye Exam: Bilateral Eye: PERRL Throat/Mouth: Normal Inspection Head: Atraumatic Neck: Supple Respiratory/Chest: No Respiratory Distress, Lungs Clear, Normal Breath Sounds Cardiovascular: Regular Rate, Rhythm GI/Abdominal: Soft, Non-Tender Back Exam: No: CVA Tenderness (L), CVA Tenderness (R) Extremities: Normal Inspection, Normal Range of Motion Neurological: Alert, Oriented, No Motor/Sensory Deficits Skin Exam: Warm, Dry, Normal Color #1 Interpretation EKG Date: 10/06/20 Rhythm: Other (S jamar) [place]: Normal P-Wave: Present QRS: Normal ST-T: Normal QT: Normal Course - Vital Signs Last Recorded V/S: Last Vital Signs Temp 98.3 F 10/06/20 13:30 Pulse 49 L 10/06/20 13:30 Resp 20 10/06/20 13:30 BP 124/66 10/06/20 13:30 Pulse Ox 100 10/06/20 13:30 - Orders/Labs/Meds Orders: Active Orders 24 hr Category Date Time Status EKG 12 Lead [EKG Documentation Completion] [] STAT Care 10/06/20 13:59 Active Holter Monitor 48 Hours [RC] .PRN Care 10/06/20 15:17 Active Peripheral IV Care [RC] . DIRECTED Care 10/06/20 14:00 Active Ketorolac [Toradol] Med 10/06/20 14:15 Active 30 mg IVPUSH ONETIME Sodium Chloride 0.9% [Normal Saline] 1,000 ml Med 10/06/20 14:00 Active IV ONETIME Sodium Chloride 0.9% [Saline Flush] Med 10/06/20 13:58 Active 10 ml FLUSH ASDIRECTED PRN Peripheral IV Insertion Adult [OM.PC] Stat Oth 10/06/20 13:59 Ordered Medication Orders Sodium Chloride (Normal Saline) 1,000 mls @ 999 mls/hr IV ONETIME [facility] Last Admin: 10/06/20 14:27 Dose: 999 mls/hr Documented by: JEFE Ketorolac Tromethamine (Ketorolac 30 Mg/Ml Sdv) 30 mg IVPUSH ONETIME [facility] Last Admin: 10/06/20 14:25 Dose: 30 mg Documented by: JEFE Sodium Chloride (Sodium Chloride 0.9% 10 Ml Syringe) 10 ml FLUSH ASDIRECTED PRN PRN Reason: Keep Vein Open Last Admin: 10/06/20 14:20 Dose: 10 ml Documented by: JEFE Labs: Laboratory Tests 10/06/20 10/06/20 Range/Units 14:20 14:20 WBC 7.31 (3.98-10.04) K/mm3 RBC 5.11 (3.98-5.22) M/mm3 Hgb 15.5 D (11.2-15.7) gm/dl Hct 45.9 H (34.1-44.9) % MCV 89.8 (79.4-94.8) fl MCH 30.3 (25.6-32.2) pg MCHC 33.8 (32.2-35.5) g/dl RDW Std Deviation 43.2 (36.4-46.3) fL Plt Count 196 (182-369) K/mm3 MPV 11.3 (9.4-12.3) fl Neut % (Auto) 65.4 (34.0-71.1) % Lymph % (Auto) 22.4 (19.3-51.7) % [place] % (Auto) 8.1 (4.7-12.5) % Eos % (Auto) 3.6 (0.7-5.8) Baso % (Auto) 0.4 (0.1-1.2) % Neut # (Auto) 4.78 (1.56-6.13) K/mm3 Lymph # (Auto) 1.64 (1.18-3.74) K/mm3 [place] # (Auto) 0.59 H (0.24-0.36) K/mm3 Eos # (Auto) 0.26 (0.04-0.36) K/mm3 Baso # (Auto) 0.03 (0.01-0.08) K/mm3 Sodium 143 (136-145) mEq/L Potassium 4.0 (3.5-5.1) mEq/L Chloride 105 (98-107) mEq/L Carbon Dioxide 27 (21-32) mEq/L Anion Gap 15.0 (5-15) BUN 9 (7-18) mg/dL Creatinine 0.8 (0.55-1.02) mg/dL Est Cr Clr Drug Dosing 86.37 mL/min Estimated GFR (MDRD) > 60 (>60) mL/min BUN/Creatinine Ratio 11.3 L (14-18) Glucose 86 (70-99) mg/dL Calcium 9.4 (8.5-10.1) mg/dL Total Bilirubin 0.5 (0.2-1.0) mg/dL AST 16 (15-37) U/L ALT 18 (14-59) U/L Alkaline Phosphatase 60 (46-116) U/L Total Protein 8.9 H (6.4-8.2) g/dl Albumin 4.8 (3.4-5.0) g/dl Globulin 4.1 gm/dL Albumin/Globulin Ratio 1.2 (1-2) Meds: Medications Generic Name Dose Route Start Last Admin Trade Name Freq PRN Reason Stop Dose Admin Sodium Chloride 1,000 mls @ 999 mls/hr 10/06/20 14:00 10/06/20 14:27 Normal Saline IV 999 mls/hr ONETIME SOTO Administration Ketorolac Tromethamine 30 mg 10/06/20 14:15 10/06/20 14:25 Ketorolac 30 Mg/Ml Sdv IVPUSH 30 mg ONETIME SOTO Administration Sodium Chloride 10 ml 10/06/20 13:58 10/06/20 14:20 Sodium Chloride 0.9% 10 Ml Syringe FLUSH 10 ml ASDIRECTED PRN Administration Keep Vein Open Discontinued Medications Generic Name Dose Route Start Last Admin Trade Name Freq PRN Reason Stop Dose Admin Diphenhydramine HCl 25 mg 10/06/20 14:01 10/06/20 14:21 Diphenhydramine 50 Mg/Ml Sdv IVPUSH 10/06/20 14:02 25 mg ONETIME ONE Administration Metoclopramide HCl 5 mg 10/06/20 14:01 10/06/20 14:23 Metoclopramide 10 Mg/2 Ml Sdv IVPUSH 10/06/20 14:02 5 mg ONETIME ONE Administration - Re-Assessments/Exams Free Text/Narrative Re-Assessment/Exam: 10/06/20 15:26. Head CT normal will order 48 hr holter moniter. Departure - Departure Time of Disposition: 15:25 Disposition: Home, Self-Care 01 Condition: Fair Clinical Impression: Bradycardia, Abdominal pain Head ache Qualifiers: Headache type: unspecified Headache chronicity pattern: acute headache Intractability: not intractable Qualified Code(s): R51.9 - Headache, unspecified - Discharge Information Referrals: Ivone Pierre PA-C [Primary Care Provider] - Forms: ED Department Discharge Additional Instructions: Rest. No driving the remainder of today due to sedating medication given. Your head CT today was normal. 48 hr holter moniter. Follow up clinic later next week. Call for appt. Return to ED as needed if symptoms worsening in any way. Sepsis Event Note (ED) - Evaluation Sepsis Screening Result: No Definite Risk - Focused Exam Vital Signs: Vital Signs Temp Pulse Resp BP Pulse Ox 10/06/20 13:30 98.3 F 49 L 20 124/66 100 - My Orders Last 24 Hours: My Active Orders 10/06/20 13:58 Sodium Chloride 0.9% [Saline Flush] 10 ml FLUSH ASDIRECTED PRN 10/06/20 13:59 EKG 12 Lead [EKG Documentation Completion] [RC] STAT Peripheral IV Insertion Adult [OM.PC] Stat 10/06/20 14:00 Peripheral IV Care [RC] . DIRECTED Sodium Chloride 0.9% [Normal Saline] 1,000 ml IV ONETIME 10/06/20 14:15 Ketorolac [Toradol] 30 mg IVPUSH ONETIME 10/06/20 15:17 Holter Monitor 48 Hours [RC] .PRN - Assessment/Plan Last 24 Hours: My Active Orders 10/06/20 13:58 Sodium Chloride 0.9% [Saline Flush] 10 ml FLUSH ASDIRECTED PRN 10/06/20 13:59 EKG 12 Lead [EKG Documentation Completion] [RC] STAT Peripheral IV Insertion Adult [OM.PC] Stat 10/06/20 14:00 Peripheral IV Care [RC] . DIRECTED Sodium Chloride 0.9% [Normal Saline] 1,000 ml IV ONETIME 10/06/20 14:15 Ketorolac [Toradol] 30 mg IVPUSH ONETIME 10/06/20 15:17 Holter Monitor 48 Hours [RC] .PRN
== END 2020-10-06 15:50 | disposition home or self-care (01) ==
LOC: JD.ED 12:46
DX: R51.9 Headache, unspecified (principal); R10.9 Unspecified abdominal pain; R00.1 Bradycardia, unspecified; Z72.0 Tobacco use
CPT/HCPCS: 36415; 70450; 80053; 85025; 93005; 93225; 93226; 96374; 96375; 99284; J1200; J1885; J2765; J7030; 93010

== ENCOUNTER 2021-04-30 23:40 | Emergency (ER) | payer MEDICAID ==
[2021-05-01] MEDS ORDERED: Sodium Chloride 0.9% 1,000 ML IV ONE (00:14)
[2021-05-01 00:32] LABS: ACETAMINOPHEN 0 ug/mL (10-30)
== END 2021-05-01 08:00 ==
LOC: JD.ED 23:40
DX: T50.902A Poisoning by unspecified drugs, medicaments and biological substances, intentional self-harm, initial encounter (principal); F10.129 Alcohol abuse with intoxication, unspecified; Z20.822 Contact with and (suspected) exposure to COVID-19; Y90.5 Blood alcohol level of 100-119 mg/100 ml
CPT/HCPCS: 36415; 80053; 80143; 80179; 80306; 80307; 81025; 82803; 82947; 84443; 85025; 85610; 87635; 99285; J7030; U0002

== ENCOUNTER 2023-03-31 07:19 | Inpatient (IN) | payer MEDICAID ==
[2023-03-31] MEDS ORDERED: Nalbuphine HCl 10 MG/ 1ML Amp IVPUSH PRN (08:03)
[2023-03-31] MEDS ORDERED: Ondansetron 4 MG/2 ML SDV IVPUSH PRN (08:03)
[2023-03-31] MEDS ORDERED: Lidocaine 1% 50 ML MDV INJECT PRN (08:03)
[2023-03-31] MEDS ORDERED: Sodium Chloride 0.9% 10 ML Syringe FLUSH PRN (08:03)
[2023-03-31] MEDS ORDERED: Calcium Carbonate 500 MG Tab.Chew PO PRN (08:03)
[2023-03-31] MEDS ORDERED: Oxytocin/Lactated Ringers 30 UNIT/500 ML BAG IV SCH ×3 (08:15→09:45)
[2023-03-31] MEDS ORDERED: Lactated Ringers 1,000 ML IV SCH (08:15)
[2023-03-31 08:57] LABS: BASOPHILS PERCENT AUTO 0.2 % (0.0-1.0); EOSINOPHILS ABSOLUTE AUTO 0.1 K/mm3 (0.0-0.4); EOSINOPHILS PERCENT AUTO 0.8 % (0.0-6.0); HEMATOCRIT 35.8 % (37.0-47.0); HEMOGLOBIN 12.3 gm/dl (12.0-16.0); IMMATURE GRAN ABSOLUTE AUTO 0.04 K/mm3 (0.00-0.05); IMMATURE GRAN PERCENT AUTO 0.5 % (0.0-0.4); LYMPHOCYTES ABSOLUTE AUTO 1.5 K/mm3 (1.0-4.8); LYMPHOCYTES PERCENT AUTO 18.2 % (24.0-44.0); MEAN CORPUSCULAR HEMOGLOBIN 28.6 pg (28.0-32.0); MEAN CORPUSCULAR HGB CONC 34.4 g/dl (32.0-36.0); MEAN CORPUSCULAR VOLUME 83.3 fl (83.0-99.0); MEAN PLATELET VOLUME 10.7 fl (9.4-12.3); MONOCYTES ABSOLUTE AUTO 0.8 K/mm3 (0.0-0.8); MONOCYTES PERCENT AUTO 9.8 % (0.0-8.0); NEUTROPHILS ABSOLUTE AUTO 5.9 K/mm3 (1.8-7.7); NEUTROPHILS PERCENT AUTO 70.5 % (41.0-71.0); PLATELET COUNT,PLT 154 K/mm3 (150-400); WHITE BLOOD CELL COUNT,WBC 8.35 K/mm3 (3.9-11.3)
[2023-03-31] MEDS ORDERED: Sodium Chloride 0.9% 10 ML Syringe FLUSH SCH (09:00)
[2023-03-31 09:34] LABS: A/G RATIO 0.6 (1-2); ALBUMIN 2.6 g/dl (3.4-5.0); ANION GAP 15.9 (5-15); BILIRUBIN TOTAL 0.2 mg/dL (0.2-1.0); BUN/CREATININE RATIO 11.4 (14-18); CALCIUM 8.7 mg/dL (8.5-10.1); CREATININE 0.7 mg/dL (0.55-1.02); EST CRCL DRUG DOSING (CG) 95.94 mL/min; POTASSIUM,K 3.9 mEq/L (3.5-5.1); PROTEIN TOTAL,TP 7.2 g/dl (6.4-8.2)
[2023-03-31] MEDS ORDERED: Acetaminophen 325 MG Tab PO PRN (09:45)
[2023-03-31] MEDS ORDERED: Benzocaine/Menthol 20%-0.5% Spray 78 GM Cannister TOP PRN (09:45)
[2023-03-31] MEDS ORDERED: Witch Hazel Medicated Pads 40/Jar TOP PRN (09:45)
[2023-03-31] MEDS ORDERED: Ibuprofen 600 MG Tab PO PRN (09:45)
[2023-03-31] MEDS ORDERED: Hydrocortisone Acetate 25 MG Supp RECTAL PRN (09:45)
[2023-03-31] MEDS ORDERED: Docusate Sodium 100 MG Cap PO PRN (09:45)
[2023-03-31 19:14] LABS: CREATININE,URINE RAND 77.6 mg/dL (30.0-125.0); PROTEIN CREATININE RATIO,URINE 425.3 mg/g (0-149)
[2023-03-31] MEDS ORDERED: Magnesium Hydroxide 400 MG/5 ML Susp 30 ML Cup PO PRN (21:00)
[2023-04-01] MEDS ORDERED: Prenatal Multivitamin with Calcium/Folic Acid/Iron Tab PO SCH (09:00)
== END 2023-04-01 18:46 | disposition home or self-care (01) | DRG 807 ==
LOC: JD.OBCHECK 07:19 → JD.OB 08:20 → OBSVTOIN 09:02 → JD.OB 09:03
PROVIDERS: ADMIT Obstetrics & Gynecology; ATTEND Obstetrics & Gynecology
PROC: 10E0XZZ Delivery of Products of Conception, External Approach (ICD-10-PCS; principal; 2023-03-31)
PROC: 10907ZC Drainage of Amniotic Fluid, Therapeutic from Products of Conception, Via Natural or Artificial Opening (ICD-10-PCS; 2023-03-31)
DX: O14.04 Mild to moderate pre-eclampsia, complicating childbirth (principal); Z37.0 Single live birth; O66.0 Obstructed labor due to shoulder dystocia; O76 Abnormality in fetal heart rate and rhythm complicating labor and delivery; O70.0 First degree perineal laceration during delivery; Z3A.39 39 weeks gestation of pregnancy; Z79.899 Other long term (current) drug therapy
CPT/HCPCS: 36415; 59025; 59409; 80053; 82570; 83615; 84156; 85025; 86592; A9270-GY; J7999